=== PATIENT | male | born 1970 | race Caucasian/White ===

== ENCOUNTER 2018-01-15 20:22 | Emergency (ER) | payer OTHER ==
[~2018-01-15] VITALS: Ht 175.3 cm; Wt 79.4 kg
[2018-01-15 20:36] VITALS: BP_SYST 120
== END 2018-01-15 21:09 | disposition home or self-care (01) ==
LOC: SED 20:22
DX: S01.01XA Laceration without foreign body of scalp, initial encounter (principal); Z88.0 Allergy status to penicillin; W22.8XXA Striking against or struck by other objects, initial encounter; Y93.89 Activity, other specified; Y92.810 Car as the place of occurrence of the external cause; Y99.2 Volunteer activity
CPT/HCPCS: 99283